=== PATIENT | female | born 1990 | race Caucasian/White ===

== ENCOUNTER 2020-05-23 01:06 | Emergency (ER) | payer OTHER ==
[~2020-05-23] VITALS: Ht 175.3 cm; Wt 75.3 kg
[2020-05-23] MEDS ORDERED: MOBIC15 MG PO (03:29)
[2020-05-23 03:38] VITALS: BP 119/76
== END 2020-05-23 03:43 | disposition home or self-care (01) ==
LOC: ER 01:06
DX: S86.812A Strain of other muscle(s) and tendon(s) at lower leg level, left leg, initial encounter (principal); W51.XXXA Accidental striking against or bumped into by another person, initial encounter; Y93.89 Activity, other specified; Y92.89 Other specified places as the place of occurrence of the external cause; Y99.8 Other external cause status